=== PATIENT | male | born 1975 | race Caucasian/White ===

== ENCOUNTER 2017-03-17 16:18 | Emergency (ER) | payer BC, OTHER ==
[~2017-03-17] VITALS: Ht 182.9 cm; Wt 113.5 kg
[~2017-03-17 16:18] MED LIST: CIPR500S2 PO; LNS30CCR; MORP15TA97 PO; MORP30TA16 PO; PRD20T PO
--- NOTE | 2017-03-17 17:14 | ED Lower Extremity ---
"General Chief Complaint: Lower Extremity Stated Complaint: CATHETER CHECK Source: patient Exam Limitations: no limitations History of Present Illness Time seen by provider: 17:12 Initial Comments Patient has long-standing back pain. He's been followed by credit specialist. Pain radiates down both legs. He has problems walking due to pain. Recently the right leg has been bothering a little more than the left leg. He has pain in his right calf is well now. He was seen at urgent care prior to arrival. They referred him here because of right leg was swollen and they were concerned about a blood clot. He denies chest pain or shortness of air. Allergies and Home Medications Allergies Coded Allergies: No Known Drug Allergies (Verified , 09/22/07) Home Medications [Xanax] , (Reported) [tramadol] , (Reported) Constitutional: no symptoms reported Respiratory: no symptoms reported Cardiovascular: no symptoms reported Musculoskeletal: back pain, muscle pain, muscle stiffness All Other Systems Reviewed Negative Unless Noted: Yes Past Aposisc-Szmfox-Fqilkb Hx Patient Social History Alcohol Use: Occasionally Uses Smoking Status: Never a Smoker Recent Foreign Travel: No Contact w/Someone Who Travel: No Immunizations Up To Date Tetanus Booster (TDap): Unknown Surgeries HX Surgeries: Yes (fx ankle/femur) Respiratory Hx Respiratory Disorders: No Cardiovascular Hx Cardiac Disorders: No Neurological Hx Neurological Disorders: No Reproductive System Hx Reproductive Disorders: No Sexually Transmitted Disease: No HIV/AIDS: No Genitourinary Hx Genitourinary Disorders: Yes Genitourinary Disorders: Prostate Problems Gastrointestinal Hx Gastrointestinal Disorders: No Musculoskeletal Hx Musculoskeletal Disorders: Yes Musculoskeletal Disorders: Degenerate Disk Disease, Arthritis Endocrine Hx Endocrine Disorders: No HEENT HX ENT Disorders: No Cancer Hx Cancer: No Psychosocial Hx Psychiatric Problems: No Blood Transfusions Hx Blood Disorders: No Reviewed Nursing Assessment Reviewed/Agree w Nursing PMH: Yes Family Medical History Significant Family History: No Pertinent Family Hx Physical Exam Vital Signs Vital Sign - Last 12Hours 03/17/17 16:59 Temp 99.7 Pulse 83 Resp 18 B/P (MAP) 146/106 Capillary Refill : General Appearance: WD/WN, no apparent distress Neck: supple Cardiovascular: regular rate, rhythm Respiratory: lungs clear Gastrointestinal: soft Legs: right leg soft tissue tenderness (right calf is tender|, no cord) Neurologic/Psychiatric: alert, normal mood/affect Skin: normal color, warm/dry Progress/Results/Core Measures Results/Orders My Orders Orders - JUSTIN PADILLA MD Us Venous Lower Ext Rt (03/17/17 17:11) Vital Signs/I&O Vital Sign - Last 12Hours 03/17/17 16:59 Temp 99.7 Pulse 83 Resp 18 B/P (MAP) 146/106 Diagnostic Imaging Comments Ultrasound shows no evidence of clot Departure Impression Impression: Primary Impression: Right leg pain Additional Impressions: Chronic back pain muscle cramping right leg Disposition: HOME, SELF-CARE Condition: Stable Departure-Patient Inst. Decision time for Depature: 17:42 Referrals: KAYLI MOORE MD (PCP) Primary Care Physician Patient Instructions: Sciatica (DC) JUSTIN PADILLA MD Mar 17, 2017 17:14"
[2017-03-17] MEDS ORDERED: Xanax (17:15)
[2017-03-17] MEDS ORDERED: tramadol (17:16)
[2017-03-17 17:51] VITALS: BP 146/106
--- NOTE | 2017-03-17 17:59 | Diagnostic Imaging Report ---
PROCEDURE: US right lower extremity venous. TECHNIQUE: Multiple real-time grayscale images were obtained over the right lower extremity in various projections. Additional duplex Doppler and color Doppler images were also obtained. INDICATION: Right calf swelling and pain. FINDINGS: There is normal color flow enhancement with Doppler imaging from the external iliac vein to the ankle on the right. Calf compression shows normal augmentation of flow at the popliteal level. No evidence of popliteal cyst. IMPRESSION: Normal right lower extremity color duplex venous ultrasound. Dictated by: Dictated on workstation # [id number]
== END 2017-03-17 17:51 | disposition home or self-care (01) ==
LOC: EDUNIT# 16:18 → ER 16:20
DX: G89.29 Other chronic pain (principal); M54.9 Dorsalgia, unspecified; R25.2 Cramp and spasm; Z87.39 Personal history of other diseases of the musculoskeletal system and connective tissue
CPT/HCPCS: 99283

== ENCOUNTER → 2018-01-13 | Outpatient (CLI) | payer BC ==
[~2018-01-13] MED LIST changes: +Xanax; +tramadol
--- NOTE | 2018-01-13 17:18 | Diagnostic Imaging Report ---
INDICATION: Left lower quadrant pain x2 days. Decreased bowel sounds. COMPARISON: 09/18/2007. FINDINGS: The lungs are clear. There is no free air under the diaphragm. There are no air-fluid levels demonstrated. There is moderate amount of stool in the ascending and transverse colon. Very little stool is present in the distal colon. The stomach and small bowel are not distended. There is no organomegaly. No pathologic calcification. No bony abnormalities. IMPRESSION: 1. No acute abnormalities demonstrated. 2. There is a moderate amount of stool in the ascending and transverse colon with little stool in the distal colon. Report given to Nayana Silveira APRN, at 5:18 p.m. 01/13/2018/cristóbal Dictated by: Dictated on workstation # [id number]
== END ==
LOC: RAD 16:35
PROVIDERS: ATTEND Nurse Practitioner Family
DX: R10.32 Left lower quadrant pain (principal); R19.15 Other abnormal bowel sounds
CPT/HCPCS: 74022

== ENCOUNTER 2018-02-06 14:00 | Outpatient (CLI) | payer BC ==
[~2018-02-06] VITALS: Ht 182.9 cm; Wt 131.6 kg
[2018-02-06] MEDS ORDERED: MELO15TA39 PO (14:05)
[2018-02-06] MEDS ORDERED: ALPR1TAB2 PO (14:05)
[2018-02-06] MEDS ORDERED: TRAM50TA2 PO (14:05)
[2018-02-12] MEDS ORDERED: PANT40TA2 PO (14:42)
== END 2018-02-06 14:11 ==
LOC: PREOP 14:00
PROVIDERS: ATTEND Surgery
DX: Z01.818 Encounter for other preprocedural examination (principal); R19.4 Change in bowel habit

== ENCOUNTER 2018-02-12 11:20 | Day surgery (SDC) | payer BC ==
[~2018-02-12] VITALS: Ht 182.9 cm; Wt 131.6 kg
[~2018-02-12 11:20] MED LIST changes: +ALPR1TAB2 PO; +MELO15TA39 PO; +TRAM50TA2 PO
[2018-02-12] MEDS ORDERED: LACTATED RINGERS 1,000 ML IV STA (11:39)
[2018-02-12] MEDS ORDERED: HURRICAINE EXT TUBE (BENZOCAINE) XX PRN (11:45)
[2018-02-12] MEDS ORDERED: LACTATED RINGERS 1,000 ML IV ONE (11:50)
[2018-02-12 12:11] VITALS: BP 133/83
[2018-02-12] MEDS ORDERED: MIDAZOLAM 2 MG/2 ML (VERSED) VIAL ONE (13:56)
[2018-02-12] MEDS ORDERED: PROPOFOL INJECTION 50 ML IV ONE (13:56)
--- NOTE | 2018-02-12 13:58 | Progress Note-Pre Operative ---
Pre-Operative Progress Note H&P Reviewed The H&P was reviewed, patient examined and no changes noted. Time Seen by Provider: 13:46 Date H&P Reviewed: February 12, 2018 Time H&P Reviewed: 13:49 Pre-Operative Diagnosis: Gastritis, Change in bowel habits, LLQ pain NOBLE GARCIA DO February 12, 2018 13:58
[2018-02-12] MEDS ORDERED: proPOfol 200 MG/20 ML (DIPRIVAN) VIAL IV ONE (14:14)
[2018-02-12] MEDS ORDERED: HURRICAINE EXT TUBE (BENZOCAINE) ONE (14:39)
--- NOTE | 2018-02-12 14:41 | Progress Note-Post Operative ---
Post-Operative Progess Note Surgeon (s)/Incident Response Specialist (s) Surgeon NOBLE GARCIA DO Incident Response Specialist: none Pre-Operative Diagnosis Gastritis, Change in bowel habits, LLQ pain Post-Operative Diagnosis Gastritis ? Flores's esophagus Colon Polyps Diverticula Int Hemorrhoids Procedure & Operative Findings Date of Procedure 02/12/18 Procedure Performed/Findings EGD with bx Colon with snare Anesthesia Type IV sedation by FAST FOOD MANAGER Estimated Blood Loss Estimated blood loss (mL): scant Specimens/Packing Specimens Removed Antral bx GE jxn bx Ascending colon polyp Descending colon polyp NOBLE GARCIA DO February 12, 2018 14:41
[2018-02-12] MEDS ORDERED: PANT40TA2 PO (14:42)
--- NOTE | 2018-02-12 14:44 | Endoscopy Discharge Instruct ---
Endo Procedure/Findings Findings 1.: Gastritis, Flores's Esophagus (questionable) 2.: Polyp (ascending and descending colon) 3.: Diverticulosis 4.: Internal Hemorrhoids Discharge Instructions - Activity: You might feel a little sleepy until tomorrow. This is due to the medicine you received to relax you. Until tomorrow, you should: NOT drive a car, operate machinery or power tools. NOT drink any alcoholic beverages. NOT make any important decisions or sign importortant papers. Do not return to work until tomorrow, unless otherwise instructed. Resume previous activities tomorrow. Diet: Start by taking liquids. If you tolerate liquids, advance to solid food. Notify Physician - If you experience excessive bleeding, unusual abdominal pain, fever, or chest pain, contact your doctor immediately. Follow-Up: - I have received and understand the above instructions and will call my doctor if I have any further questions. Patient Signature Date Nurse Signature Other (Relationship) NOBLE GARCIA DO February 12, 2018 14:44
--- NOTE | 2018-02-12 14:55 | Anesthesia-General Post-Op ---
MAC Patient Condition Mental Status/LOC: Same as Preop Cardiovascular: Satisfactory Nausea/Vomiting: Absent Respiratory: Satisfactory Pain: Controlled Complications: Absent Post Op Complications Complications None Follow Up Care/Instructions Patient Instructions None needed. Anesthesiology Discharge Order Discharge Order Patient is doing well, no complaints, stable vital signs, no apparent adverse anesthesia problems. No complications reported per nursing. SEAMUS MALIK CRNA February 12, 2018 14:55
[2018-02-12 15:15] VITALS: BP 132/67
[2018-02-12 15:45] VITALS: BP 131/84
--- OUTSIDE RECORDS SUMMARY | 2018-02-12 18:41 | XMS REPORT ---
Author Author ELPIDIO BANSAL Organization [facility] Address [address] [place] [address] Care Team Providers Care Trimming Operator Name Role Phone NIMISHA ELPIDIO Unavailable PROBLEMS Type Condition ICD9-CM Code USB57-MT Code Onset Dates Condition Status SNOMED Code Problem Abdominal pain, right upper quadrant 789.01 Active 200614581 Problem Neuropathy G62.9 Active 180648197 Problem Degenerative disc disease, lumbar M51.36 Active 91089939 Problem Unspecified gastritis and gastroduodenitis without mention of hemorrhage 535.50 Active 970549039 Problem Pain in joint, site unspecified 719.40 Active 90825573 Problem Degenerative disc disease, cervical M50.30 Active 83538139 Problem Degenerative disc disease, thoracic M51.34 Active 23066640 ALLERGIES No Known Allergies ENCOUNTERS Encounter Location Date Diagnosis [facility] [address] [id number] Mar, Cramps of right lower extremity R25.2 and Neuropathy G62.9 [place] [address] [address] Apr, Degenerative disc disease, cervical M50.30 ; Degenerative disc disease, lumbar M51.36 ; Degenerative disc disease, thoracic M51.34 ; Radiculopathy of lumbar region M54.16 ; Spinal stenosis, lumbar region M48.06 and Spinal stenosis of thoracolumbar region M48.05 [place] [address] [address] Mar, Degenerative disc disease, cervical M50.30 ; Degenerative disc disease, lumbar M51.36 and Degenerative disc disease, thoracic M51.34 [place] [address] [address] Mar, Numbness and tingling of both legs R20.2 ; Dizziness R42 ; Primary insomnia F51.01 ; Lumbago with sciatica, left side M54.42 ; Lumbago with sciatica, right side M54.41 and Other chronic pain G89.29 [facility] [address] [place] [id number] [place] [phone] 14 Jan, 2015 [facility] [address] [address] Jan, [facility] [address] [place] [id number] [place] [phone] 30 Jan, 2012 [facility] [address] [address] Jan, [facility] [address] [place] [id number] [place] [phone] Jan, [facility] [address] [place] [id number] [place] [phone] 16 Jan, 2012 [facility] [address] [place] [id number] [place] [address] Jan, [facility] [address] [place] [id number] [place] [phone] Jan, [facility] [address] [place] [id number] [place] [address] Jan, [facility] [address] [place] [id number] [place] [address] Jan, [facility] [address] [place] [id number] [place] [phone] Jan, IMMUNIZATIONS No Known Immunizations SOCIAL HISTORY Never Assessed REASON FOR VISIT leg cramps x4 days STeposte [facility] PLAN OF CARE Activity Details Follow Up prn Reason: VITAL SIGNS Height 72 in 2017-03-18 Weight 300 lbs 2017-03-18 Temperature 97.4 degrees Fahrenheit 2017-03-18 Heart Rate 96 bpm 2017-03-18 Respiratory Rate 20 2017-03-18 BMI 40.68 kg/m2 2017-03-18 Blood pressure systolic 142 mmHg 2017-03-18 Blood pressure diastolic 96 mmHg 2017-03-18 MEDICATIONS Medication Instructions Dosage Frequency Start Date End Date Duration Status Gabapentin 300 MG Orally Take one capsule today, followed by BID tomorrow, followed by TID there after as directed Mar, 30 day(s) Active Tramadol HCl 50 MG Orally every 6 hrs 1 tablet as needed 6h Active Xanax XR 1 MG Orally Once a day 1 tablet in the morning 24h Active RESULTS Name Result Date Reference Range CBC 2017-03-18 WBC 7.8 3.4-10.8 RBC 5.32 4.14-5.80 Hemoglobin 15.8 12.6-17.7 Hematocrit 45.9 37.5-51.0 MCV 86 79-97 MCH 29.7 26.6-33.0 MCHC 34.4 31.5-35.7 RDW 13.4 12.3-15.4 Platelets 211 150-379 Neutrophils 72 Lymphs 21 Monocytes 6 Eos 1 Basos 0 Neutrophils (Absolute) 5.6 1.4-7.0 Lymphs (Absolute) 1.6 0.7-3.1 Monocytes(Absolute) 0.5 0.1-0.9 Eos (Absolute) 0.1 0.0-0.4 Baso (Absolute) 0.0 0.0-0.2 Immature Granulocytes 0 Immature Grans (Abs) 0.0 0.0-0.1 CMP 2017-03-18 Glucose, Serum 117 65-99 BUN 14 6-24 Creatinine, Serum 0.89 0.76-1.27 eGFR If NonAfricn Am 104 >59 eGFR If Africn Am 120 >59 BUN/Creatinine Ratio 16 9-20 Sodium, Serum 143 134-144 Potassium, Serum 4.3 3.5-5.2 Chloride, Serum 102 96-106 Carbon Dioxide, Total 24 18-29 Calcium, Serum 9.7 8.7-10.2 Protein, Total, Serum 7.0 6.0-8.5 Albumin, Serum 4.4 3.5-5.5 Globulin, Total 2.6 1.5-4.5 A/G Ratio 1.7 1.2-2.2 Bilirubin, Total 1.2 0.0-1.2 Alkaline Phosphatase, S 85 39-117 AST (SGOT) 66 0-40 ALT (SGPT) 54 0-44 UA LONG DIP (IN HOUSE) 2017-03-18 Lot # [id number] Exp date Clarity jeremy Color clear Odor GLU Negative XAVI Negative KET Negative SG 1.025 BLO Negative pH 5.5 Protein Negative URO 0.2 E.U./dL NIT Negative ALEJANDRO Negative Lot # Exp date PROCEDURES Procedure Date Ordered Result Body Site URINALYSIS, AUTO, W/O SCOPE March 18, 2017 COMPLETE CBC W/AUTO DIFF WBC March 18, 2017 VENIPUNCT, ROUTINE* March 18, 2017 COMPREHEN METABOLIC PANEL March 18, 2017 INSTRUCTIONS MEDICATIONS ADMINISTERED No Known Medications MEDICAL (GENERAL) HISTORY Type Description Date Surgical History ankle surgery--Left Surgical History left knee arthroscopy Surgical History Bj placed in femur for Traction at age 8
--- OUTSIDE RECORDS SUMMARY | 2018-02-12 18:41 | XMS REPORT | Continuity of Care Document ---
Author Author [facility] Organization [facility] Address Unknown Phone Unavailable Allergies Active Description Code Type Severity Reaction Onset Reported/Identified Relationship to Patient Clinical Status Yes No Known Drug Allergies [id number] Drug Allergy Unknown N/A 02/06/2018 Medications There is no data. Problems Date Dx Coded Attending Type Code Diagnosis Diagnosed By 06/08/2013 SHAINA ISLAS MD Ot 276.50 VOLUME DEPLETION, UNSPECIFIED 06/08/2013 SHAINA ISLAS MD Ot 788.20 RETENTION OF URINE NOS 08/03/2013 KAYLI MOORE MD Ot 562.11 DIVERTICULITIS COLON (W/O MENT OF HEMORR 08/03/2013 KAYLI MOORE MD Ot 789.09 ABDOMINAL PAIN, OTHER SPECIFIED SITE 03/21/2016 Ot 571.8 CHRONIC LIVER DIS NEC 03/21/2016 Ot 789.01 ABDOMINAL PAIN, RIGHT UPPER QUADRANT 03/17/2017 Ot 571.8 CHRONIC LIVER DIS NEC 03/17/2017 Ot 789.01 ABDOMINAL PAIN, RIGHT UPPER QUADRANT 03/17/2017 JUSTIN PADILLA MD Ot G89.29 OTHER CHRONIC PAIN 03/17/2017 JUSTIN PADILLA MD Ot M54.9 DORSALGIA, UNSPECIFIED 03/17/2017 JUSTIN PADILLA MD Ot R25.2 CRAMP AND SPASM 03/17/2017 JUSTIN PADILLA MD Ot Z87.39 PERSONAL HISTORY OF DISEASES OF THE MS S 03/17/2017 Ot 571.8 CHRONIC LIVER DIS NEC 03/17/2017 Ot 789.01 ABDOMINAL PAIN, RIGHT UPPER QUADRANT 03/20/2017 JUSTIN PADILLA MD Ot G89.29 OTHER CHRONIC PAIN 03/20/2017 JUSTIN PADILLA MD Ot M54.9 DORSALGIA, UNSPECIFIED 03/20/2017 JUSTIN PADILLA MD Ot R25.2 CRAMP AND SPASM 03/20/2017 JUSTIN PADILLA MD Ot Z87.39 PERSONAL HISTORY OF DISEASES OF THE MS S 01/14/2018 RYAN, NANCY L RESEARCH SPECIALIST Ot R10.32 LEFT LOWER QUADRANT PAIN 01/14/2018 RYAN, NANCY L RESEARCH SPECIALIST Ot R19.15 OTHER ABNORMAL BOWEL SOUNDS 01/30/2018 RYAN, NANCY L RESEARCH SPECIALIST Ot R10.32 LEFT LOWER QUADRANT PAIN 01/30/2018 RYAN, NANCY L RESEARCH SPECIALIST Ot R19.15 OTHER ABNORMAL BOWEL SOUNDS 02/06/2018 RADHA DUQUE NOBLE B Ot Z01.818 ENCOUNTER FOR OTHER PREPROCEDURAL EXAMIN 02/06/2018 MICHELLEMAN DO NOBLE B Ot Z01.818 ENCOUNTER FOR OTHER PREPROCEDURAL EXAMIN 02/06/2018 DELMAN DO, NOBLE B Ot Z01.818 ENCOUNTER FOR OTHER PREPROCEDURAL EXAMIN 02/07/2018 RADHA DO NOBLE B Ot R19.4 CHANGE IN BOWEL HABIT 02/07/2018 RADHA DO NOBLE B Ot Z01.818 ENCOUNTER FOR OTHER PREPROCEDURAL EXAMIN Procedures There is no data. Results There is no data. Encounters ACCT No. Visit Date/Time Discharge Status Pt. Type Provider Facility Loc./Unit Complaint [id number] 02/06/2018 14:00:00 02/06/2018 14:11:00 DIS Outpatient NOBLE GARCIA DO [facility] PREOP COLONOSCOPY/EGD [id number] 01/13/2018 16:35:00 01/13/2018 23:59:59 CLS Outpatient NANCY DAVIS RESEARCH SPECIALIST [facility] RAD LLQ ABDOMINAL PAIN [id number] 03/17/2017 16:20:00 03/17/2017 17:51:00 DIS Emergency JUSTIN PADILLA MD [facility] ER CALF CHECK [id number] 08/03/2013 07:45:00 08/03/2013 11:00:00 DIS Emergency KAYLI MOORE MD [facility] ER LOWER ABD PAIN [id number] 06/08/2013 14:48:00 06/08/2013 17:52:00 DIS Emergency SHAINA ISLAS MD [facility] ER UNABLE TO URINATE [id number] 02/12/2018 11:20:00 ACT Outpatient NOBLE GARCIA DO [facility] ENDO BLOATING/CHANGE IN STOOLS [id number] 02/01/2012 09:23:00 Document Registration
--- OUTSIDE RECORDS SUMMARY | 2018-02-12 18:41 | XMS REPORT | Clinical Summary ---
Author Author [facility] Organization [facility] Address Unknown Phone Unavailable Care Team Providers Care Counterintelligence Agent Name Role Phone Jose Jordan MD Unavailable Flako Gross APRN PCP Source Comments Some departments are not documenting in the electronic medical record. If you do not see the information that you expected, contact Release of Information in the Health Information Management department at [phone] for further assistance in locating additional records.[facility] Allergies Not on File Current Medications Prescription Sig. Disp. Refills Start End Date Status Date traMADol (ULTRAM) 50 mg Take 50 mg by mouth every Active tablet 6 hours as needed for Pain. Active Problems Not on file Family History Relation Name Status Comments Father Alive Mother Alive Social History Tobacco Use Types Packs/Day Years Used Date Never Smoker Alcohol Use Drinks/Week oz/Week Comments No 0 Standard 0.0 drinks or equivalent Sex Assigned at Date Recorded Not on file Last Filed Vital Signs Vital Sign Reading Time Taken Blood Pressure 126/78 06/12/2016 10:41 AM CDT Pulse 92 06/12/2016 10:41 AM CDT Temperature 36.9 C (98.4 F) 06/12/2016 10:41 AM CDT Respiratory Rate 18 06/12/2016 10:41 AM CDT Oxygen Saturation 97% 06/12/2016 10:41 AM CDT Inhaled Oxygen - - Concentration Weight 131.1 kg (289 lb 1.9 oz) 06/12/2016 10:41 AM CDT Height 177.8 cm (5' 10") 06/12/2016 10:41 AM CDT Body Mass Index 41.48 06/12/2016 10:41 AM CDT Plan of Treatment Health Maintenance Due Date Last Done Comments PHYSICAL (COMPREHENSIVE) 02/24/1980 EXAM PERTUSSIS VACCINE 02/24/1984 HIV SCREENING 02/24/1988 TETANUS VACCINE 1990 INFLUENZA VACCINE 07/14/2018 Results Not on filefrom Last 3 Months
--- NOTE | 2018-02-14 02:56 | OPERATIVE REPORT ---
DATE OF SERVICE: 02/12/2018 PREOPERATIVE DIAGNOSES: 1. Gastritis. 2. Change in bowel habits, some left lower quadrant pain, history of diverticula. POSTOPERATIVE DIAGNOSES: 1. Gastritis. 2. Colon polyps. 3. Diverticula. 4. Internal hemorrhoids. PROCEDURE: 1. EGD with biopsy. 2. Colonoscopy with snare polypectomy. SURGEON: Dr. Bhandari. REMEDIATION TECHNICIAN: None. ANESTHESIA: IV sedation by RESILIENT TILE INSTALLER. SPECIMEN: One biopsy from the antrum and one from the GE junction as well as two colon polyps from the descending colon. BLOOD LOSS: Scant. FLUIDS: Per anesthesia. POSTOPERATIVE CONDITION: Stable. INDICATION FOR PROCEDURE: The patient is a 42-year-old male who has been having some heartburn and gastritis symptoms and needed a workup. He also noted some change in bowel habits, left lower quadrant pain, history of diverticulitis and some change in bowel habits, wanting to get a colonoscopy. FINDINGS: The patient had some gastritis. Duodenum looked okay. He also had what looked like some changes at the GE junction, possibly Flores's esophagus. Biopsies were performed in the colon. The patient had lot of diverticula throughout the colon. He also had 2 polyps in the descending colon and some grade I internal hemorrhoids. PROCEDURE NOTE: After informed consent was obtained, the patient was brought to the endoscopy suite, placed in bed in the left lateral decubitus position. He was administered IV sedation by the RESILIENT TILE INSTALLER who then monitored his vitals the entire time, heart rate, blood pressure and pulse ox. A scope was inserted down the mouth, down the esophagus and into the stomach, looked into the antrum. There was some erythema and some gastritis and then down into the duodenum. Duodenum looked normal. Backed up and did a biopsy in the antrum. Retroflexed the scope. Did not really see any hiatal hernia, although it looked like there was some redness around the GE junction, pulled back up the stomach into the esophagus and right at the GE junction, there did look like there was some creeping up of the Z line. A biopsy was performed here. Then pulled up, the rest of the esophagus looked good. Switched scopes, switched gloves and then went down below to perform the second procedure, performing the colonoscopy. Pushing the scope in from the rectum all the way to 150 cm, able to get to the cecum. On the way, I noted some diverticula and took a picture of this. Most of the diverticula were in the descending colon and sigmoid. However, there were some in the transverse and ascending colon. Once in the cecum, took a picture of the appendiceal orifice, noted the ileocecal valve, then slowly withdrew the scope, insufflating to look circumferentially at the martinez looking at the cecum up the ascending colon to the hepatic flexure, then down the transverse colon to splenic flexure, into the descending colon. In descending colon, two polyps were seen. These were removed with snare polypectomy and then sent to pathology, continued down in the sigmoid and finally into the rectum, retroflexed in the rectal vault, saw some minimal internal hemorrhoids, look like probably just grade I. Took a picture of these and then removed the scope. The patient tolerated the procedure and then recovered in the endoscopy suite. Job ID: [id number] DocumentID: [id number] Dictated Date: 02/13/2018 16:34:37 Milk Receiver Date: 02/14/2018 02:56:16 Dictated By: DO KELLY PATTEN
== END 2018-02-12 16:05 | disposition home or self-care (01) ==
LOC: ENDO 11:20
PROVIDERS: ATTEND Surgery
DX: K29.70 Gastritis, unspecified, without bleeding (principal); D12.2 Benign neoplasm of ascending colon; K57.30 Diverticulosis of large intestine without perforation or abscess without bleeding; E66.01 Morbid (severe) obesity due to excess calories; Z68.39 Body mass index [BMI] 39.0-39.9, adult
CPT/HCPCS: 88305

== ENCOUNTER 2018-05-25 15:31 | Emergency (ER) | payer BC ==
[~2018-05-25] VITALS: Ht 182.9 cm; Wt 86.2 kg
[~2018-05-25 15:31] MED LIST changes: +PANT40TA2 PO
[2018-05-25] MEDS ORDERED: ASPIRIN 81 MG CHEW (CHILDREN'S ASA) PO ONE (15:45)
[2018-05-25] MEDS ORDERED: NS IV 1000 ML 1,000 ML IV SCH (16:00)
[2018-05-25 16:05] LABS: BASOPHILS % (AUTO) 0 % (0-10); EOSINOPHILS # (AUTO) 0.1 10^3/uL (0.0-0.3); EOSINOPHILS % (AUTO) 1 % (0-10); HEMATOCRIT 45 % (40-54); HEMOGLOBIN 15.5 G/DL (13.3-17.7); LYMPHOCYTES # (AUTO) 1.9 X 10^3 (1.0-4.0); LYMPHOCYTES % (AUTO) 22 % (12-44); MEAN CORPUSCULAR HEMOGLOBIN 29 PG (25-34); MEAN CORPUSCULAR HGB CONC 34 G/DL (32-36); MEAN CORPUSCULAR VOLUME 85 FL (80-99); MEAN PLATELET VOLUME 10.2 FL (7.4-10.4); MONOCYTES # (AUTO) 0.8 X 10^3 (0.0-1.0); MONOCYTES % (AUTO) 9 % (0-12); NEUTROPHILS % (AUTO) 69 % (42-75); PLATELET COUNT 207 10^3/uL (130-400); RED BLOOD COUNT 5.33 10^6/uL (4.35-5.85); RED CELL DISTRIBUTION WIDTH 13.1 % (10.0-14.5); WHITE BLOOD COUNT 8.7 10^3/uL (4.3-11.0)
[2018-05-25] MEDS ORDERED: METO-351 PO (16:07)
--- NOTE | 2018-05-25 16:07 | ED Cardiac General ---
History of Present Illness General Chief Complaint: Cardiac/General Problems Stated Complaint: IRREGULAR HEART BEAT Source: patient Exam Limitations: no limitations History of Present Illness Date Seen by Provider: May 25, 2018 Time Seen by Provider: 16:02 Initial Comments To ER with reports of palpitations intermittently for the past 2 years, worse for the past week. Since she's been under a lot of stress lately, he reported that to the nurse but to me he denies any anxiety or stress. States that he drinks occasionally and had a few beers yesterday but nothing today and does not drink on a regular basis. No fevers or chills. No dyspnea. No chest pain. No unilateral leg swelling. States that he drinks one cup of coffee every morning. Otherwise he has no caffeine intake. He denies any workout supplements. Denies any drug use. He did have a steroid injection within the past week for hip pain. Timing/Duration: 3-4 days Severity: moderate Activities at Onset: none NTG SL BOOK PACKER: No Allergies and Home Medications Allergies Coded Allergies: No Known Drug Allergies (Unverified , 02/06/18) Home Medications Alprazolam 1 Mg Tablet, 1 MG PO HS PRN for SLEEP, (Reported) Meloxicam 15 Mg Tablet, 15 MG PO DAILY, (Reported) Pantoprazole Sodium 40 Mg Tablet.dr, 40 MG PO DAILY Prescribed by: NOBLE GARCIA on 02/12/18 1442 Tramadol HCl 50 Mg Tablet, 50 MG PO PRN, (Reported) Patient Home Medication List Home Medication List Reviewed: Yes Review of Systems Constitutional: see HPI EENTM: No Symptoms Reported Respiratory: No Symptoms Reported Cardiovascular: See HPI, Chest Pain, Palpitations Gastrointestinal: No Symptoms Reported Genitourinary: No Symptoms Reported Musculoskeletal: no symptoms reported Skin: no symptoms reported Psychiatric/Neurological: No Symptoms Reported Endocrine: No Symptoms Reported Hematologic/Lymphatic: No Symptoms Reported Past Ctsnjai-Ctxhfw-Habkla Hx Patient Social History Alcohol Beverage of Choice: Beer Recent Foreign Travel: No Contact w/Someone Who Travel: No Recent Hopitalizations: No Immunizations Up To Date Tetanus Booster (TDap): Unknown Seasonal Allergies Seasonal Allergies: Yes Past Medical History Surgeries: Yes (fx ankle/femur) Respiratory: No Sleep Apnea Currently Using CPAP: No Currently Using BIPAP: No Cardiac: No Neurological: No Reproductive Disorders: No Sexually Transmitted Disease: No HIV/AIDS: No Prostate Problems, Kidney Stones Gastrointestinal: No Chronic Constipation Musculoskeletal: Yes Degenerate Disk Disease, Arthritis, Chronic Back Pain Endocrine: No HEENT: No Loss of Vision: Denies Hearing Impairment: Denies Cancer: No Psychosocial: No Blood Disorders: No Adverse Reaction/Blood Tranf: No (N/A) Family Medical History No Pertinent Family Hx Physical Exam Vital Signs Capillary Refill : Height, Weight, BMI Height: 6'0.00" Weight: 290lbs. 2.0oz. 131.458498fx; 39.4 BMI Method:Stated General Appearance: No Apparent Distress, WD/WN HEENT: PERRL/EOMI, TMs Normal Neck: Full Range of Motion, Normal Inspection Respiratory: No Accessory Muscle Use, No Respiratory Distress Cardiovascular: Regular Rate, Rhythm, Normal Peripheral Pulses Gastrointestinal: Non Tender, Soft Neurologic/Psychiatric: Alert, Oriented x3 Skin: Normal Color, Warm/Dry Other comments EKG shows sinus rhythm rate in the 80s to 90s, occasional PVC. Progress/Results/Core Measures Results/Orders Lab Results Laboratory Tests Test 05/25/18 15:57 Range/Units My Orders Orders - SHWETA WHITE APRN Cbc With Automated Diff (05/25/18 15:36) Magnesium (05/25/18 15:36) Chest 1 View, Ap/Pa Only (05/25/18 15:36) Ekg Tracing (05/25/18 15:36) Cardiac Profile 1 (05/25/18 15:36) Comprehensive Metabolic Panel (05/25/18 15:36) Myoglobin Serum (05/25/18 15:36) Protime With Inr (05/25/18 15:36) Partial Thromboplastin Time (05/25/18 15:36) O2 (05/25/18 15:36) Monitor-Rhythm Ecg Trace Only (05/25/18 15:36) Lipid Panel (05/26/18 06:00) Aspirin Chewable Tablet (Baby Aspirin Ch (05/25/18 15:45) Saline Lock/Iv-Start (05/25/18 15:36) BNP (05/25/18 15:36) Fibrin Degradation Products (05/25/18 15:36) Thyroid Stimulating Hormone (05/25/18 16:00) Ns Iv 1000 Ml (Sodium Chloride 0.9%) (05/25/18 16:00) Departure Impression Primary Impression: Palpitations Disposition: 01 HOME, SELF-CARE Condition: Stable Departure-Patient Inst. Decision time for Depature: 16:06 Referrals: PIPE VALENZUELA [facility] Benjamin WASHINGTON MD, BASHAR J MD SEGLIE, FLOYD R MD (PCP/Family) Primary Care Physician Patient Instructions: Palpitations (DC) Add. Discharge Instructions: 1. Return to ER for any concerns 2. Follow-up with your doctor next week 3. All discharge instructions reviewed with patient and/or family. Voiced understanding. Scripts Metoprolol Succinate (Toprol Xl) 25 Mg Tab.er.24h 25 MG PO DAILY, #14 TAB Prov: SHWETA WHITE APRN 05/25/18 SHWETA WHITE APRN May 25, 2018 16:07
[2018-05-25 16:18] LABS: FIBRIN DEGRADATION PRODUCTS 0.49 UG/ML (0.00-0.49); PROTHROMBIN TIME PATIENT 13.3 SEC (12.2-14.7)
[2018-05-25 16:25] LABS: ALANINE AMINOTRANSFERASE 45 U/L (0-55); ALBUMIN 4.5 GM/DL (3.2-4.5); ALKALINE PHOSPHATASE 84 U/L (40-136); BILIRUBIN,TOTAL 1.4 MG/DL (0.1-1.0); BUN/CREATININE RATIO 17; CALCIUM 10.2 MG/DL (8.5-10.1); CARBON DIOXIDE 26 MMOL/L (21-32); CHLORIDE 105 MMOL/L (98-107); CREATININE SERUM 0.98 MG/DL (0.60-1.30); GFR ESTIMATED > 60; GLUCOSE 94 MG/DL (70-105); MAGNESIUM 2.1 MG/DL (1.8-2.4); SODIUM 140 MMOL/L (135-145); TOTAL PROTEIN 7.7 GM/DL (6.4-8.2)
[2018-05-25 16:32] LABS: MYOGLOBIN SERUM 64.3 NG/ML (10.0-92.0)
--- NOTE | 2018-05-25 16:42 | Diagnostic Imaging Report ---
INDICATION: Irregular heart rate. COMPARISON: 01/13/2018. FINDINGS: Single view of the chest demonstrates cardiac enlargement with slight central vascular congestion. There is no pneumothorax. No focal infiltrate is seen. There is no pleural effusion. Osseous structures are age appropriate. IMPRESSION: Cardiac enlargement with slight central vascular congestion. Dictated by: Dictated on workstation # [id number]
[2018-05-25 16:55] VITALS: BP 122/90
== END 2018-05-25 17:05 | disposition home or self-care (01) ==
LOC: EDUNIT# 15:31 → ER 15:33
DX: R00.2 Palpitations (principal); Z87.442 Personal history of urinary calculi; Z87.19 Personal history of other diseases of the digestive system
CPT/HCPCS: 36415; 71045; 80053; 83735; 83874; 83880; 84443; 84484; 85025; 85379; 85610; 85730; 93005; 93041

== ENCOUNTER 2018-06-19 21:00 | Outpatient (CLI) | payer BC ==
[~2018-06-19 21:00] MED LIST changes: +METO-351 PO
== END 2018-06-20 05:50 | disposition home or self-care (01) ==
LOC: SLEEP 21:00
PROVIDERS: ATTEND Internal Medicine Cardiovascular Disease
DX: G47.33 Obstructive sleep apnea (adult) (pediatric) (principal); R06.83 Snoring; G47.10 Hypersomnia, unspecified; G47.00 Insomnia, unspecified
CPT/HCPCS: 95810

== ENCOUNTER → 2018-06-20 | Outpatient (CLI) | payer BC | LOC: CARD 07:52 | PROVIDERS: ATTEND Internal Medicine Cardiovascular Disease | DX: R07.89 Other chest pain (principal); R06.09 Other forms of dyspnea; I34.0 Nonrheumatic mitral (valve) insufficiency; R00.2 Palpitations; I07.1 Rheumatic tricuspid insufficiency | CPT/HCPCS: 93225; 93226 ==

== ENCOUNTER → 2018-07-08 | Outpatient (CLI) | payer BC | LOC: CARD 10:45 | PROVIDERS: ATTEND Internal Medicine Cardiovascular Disease | DX: R07.89 Other chest pain (principal); R06.09 Other forms of dyspnea; I34.0 Nonrheumatic mitral (valve) insufficiency; I07.1 Rheumatic tricuspid insufficiency; R00.2 Palpitations | CPT/HCPCS: 93306 ==

== ENCOUNTER → 2021-02-02 | Outpatient (CLI) | payer BC ==
[~2021-02-02] MED LIST changes: -TRAM50TA2 PO; +TRM50T PO
--- NOTE | 2021-02-02 10:08 | Diagnostic Imaging Report ---
PROCEDURE: US Gallbladder. TECHNIQUE: Multiple real-time grayscale images were obtained over the right upper quadrant in various projections. INDICATION: Diarrhea. FINDINGS: Liver is mildly enlarged at 18.8 cm. There appears to be some increased echogenicity to the liver, suggestive of hepatic steatosis. The portal vein is patent and shows normal direction of flow. Gallbladder is without stones or sludge. There is no wall thickening or biliary ductal dilatation. The pancreas was obscured by bowel gas. Visualized aorta is nonaneurysmal. IVC is limited in evaluation. The right kidney is without calculi or hydronephrosis. There is no ascites. IMPRESSION: 1. Mild hepatomegaly and hepatic steatosis. 2. No evidence of cholelithiasis or acute cholecystitis. Dictated by: Dictated on workstation # [id number]
== END ==
LOC: RAD 08:19
PROVIDERS: ATTEND Surgery
DX: K76.0 Fatty (change of) liver, not elsewhere classified (principal); R19.7 Diarrhea, unspecified
CPT/HCPCS: 76705

== ENCOUNTER 2021-02-03 05:35 | Outpatient (RCR) | payer BC ==
[~2021-02-03] VITALS: Ht 182.9 cm; Wt 149.7 kg
[2021-02-06] MEDS ORDERED: PANT40TA2 PO (10:59)
== END 2021-02-03 10:00 | disposition home or self-care (01) ==
LOC: PREOP 05:35
PROVIDERS: ATTEND Surgery
DX: Z01.812 Encounter for preprocedural laboratory examination (principal); R10.10 Upper abdominal pain, unspecified; Z20.822 Contact with and (suspected) exposure to COVID-19
CPT/HCPCS: 87635

== ENCOUNTER 2021-02-06 08:45 | Day surgery (SDC) | payer BC ==
[~2021-02-06] VITALS: Ht 183 cm; Wt 150.0 kg
[2021-02-06] MEDS ORDERED: LACTATED RINGERS 1,000 ML IV ONE ×2 (08:55→10:35)
[2021-02-06] MEDS ORDERED: LACTATED RINGERS 1,000 ML IV STA (08:59)
[2021-02-06] MEDS ORDERED: HURRICAINE EXT TUBE (BENZOCAINE) XX PRN (09:00)
[2021-02-06 09:08] VITALS: BP 126/84
--- NOTE | 2021-02-06 09:43 | Progress Note-Pre Operative ---
Pre-Operative Progress Note H&P Reviewed The H&P was reviewed, patient examined and no changes noted. Time Seen by Provider: 09:40 Date H&P Reviewed: Feb 06, 2021 Time H&P Reviewed: 09:40 Pre-Operative Diagnosis: RUQ pain, upper abd pain NOBLE GARCIA DO Feb 06, 2021 09:43
[2021-02-06] MEDS ORDERED: PROPOFOL INJECTION 50 ML IV ONE (10:17)
[2021-02-06] MEDS ORDERED: MIDAZOLAM 2 MG/2 ML (VERSED) VIAL ONE (10:17)
[2021-02-06] MEDS ORDERED: HURRICAINE EXT TUBE (BENZOCAINE) ONE (10:18)
--- NOTE | 2021-02-06 10:58 | Progress Note-Post Operative ---
Post-Operative Progess Note Surgeon (s)/Gas Meter Mechanic (s) Surgeon NOBLE GARCIA DO Gas Meter Mechanic: none Pre-Operative Diagnosis RUQ pain, upper abd pain Post-Operative Diagnosis Gastritis Hiatal Hernia Esophagitis prob Barretts Procedure & Operative Findings Date of Procedure 02/06/21 Procedure Performed/Findings EGD with bx Anesthesia Type IV sedation by BELT BUILDER HELPER Estimated Blood Loss Estimated blood loss (mL): scant Specimens/Packing Specimens Removed antral bx body bx GE jxn bx NOBLE GARCIA DO Feb 06, 2021 10:58
[2021-02-06] MEDS ORDERED: PANT40TA2 PO (10:59)
--- NOTE | 2021-02-06 10:59 | Endoscopy Discharge Instruct ---
Endo Procedure/Findings Findings 1.: Gastritis 2.: Hiatal Hernia 3.: Other Findings (Esophagitis probable Flores's) Discharge Instructions - Activity: You might feel a little sleepy until tomorrow. This is due to the medicine you received to relax you. Until tomorrow, you should: NOT drive a car, operate machinery or power tools. NOT drink any alcoholic beverages. NOT make any important decisions or sign importortant papers. Do not return to work until tomorrow, unless otherwise instructed. Resume previous activities tomorrow. Diet: Start by taking liquids. If you tolerate liquids, advance to solid food. 1.: EGD in 1 year Notify Physician - If you experience excessive bleeding, unusual abdominal pain, fever, or chest pain, contact your doctor immediately. NOBLE GARCIA DO Feb 06, 2021 10:59
[2021-02-06 11:00] VITALS: BP 139/69
[2021-02-06 11:05] VITALS: BP_SYST 134; BP_SYST 137; BP_DIAS 65; BP_DIAS 83
[2021-02-06 11:35] VITALS: BP 131/99
--- NOTE | 2021-02-06 12:37 | Anesthesia-General Post-Op ---
MAC Patient Condition Mental Status/LOC: Same as Preop Cardiovascular: Satisfactory Nausea/Vomiting: Absent Respiratory: Satisfactory Pain: Controlled Complications: Absent Post Op Complications Complications None Follow Up Care/Instructions Patient Instructions None needed. Anesthesiology Discharge Order Discharge Order Patient is doing well, no complaints, stable vital signs, no apparent adverse anesthesia problems. No complications reported per nursing. MARIA EUGENIA FRANCO CRNA Feb 06, 2021 12:37
--- NOTE | 2021-02-07 13:42 | OPERATIVE REPORT ---
DATE OF SERVICE: 02/06/2021 PREOPERATIVE DIAGNOSES: Upper abdominal pain and right upper quadrant pain. POSTOPERATIVE DIAGNOSES: Gastritis, hiatal hernia, and esophagitis, possible Flores's. PROCEDURE: EGD with biopsy. SURGEON: Milton Bhandari DO MEAT COUNTER WORKER: None. ANESTHESIA: IV sedation by the FAMILY SERVICES WORKER. SPECIMEN: Antral biopsy, body of stomach biopsy, GE junction biopsy x2. BLOOD LOSS: Scant. FLUIDS: Per anesthesia. POSTOPERATIVE CONDITION: Stable. INDICATION FOR PROCEDURE: The patient is a 45-year-old male who has been having some upper abdominal pain and right upper quadrant pain, needed an EGD for workup. FINDINGS: The patient had some gastritis. He had a hiatal hernia and what looked like esophagitis, possible Flores's in the distal esophagus. PROCEDURE NOTE: After informed consent was obtained, the patient was brought to the endoscopy suite, placed in bed in left lateral decubitus position. He was administered IV sedation by the FAMILY SERVICES WORKER who then monitored his vitals the entire time, heart rate, blood pressure and pulse ox and the scope was inserted down the mouth through the esophagus. At the base of the esophagus, it looked like inflammation, took a picture. Pushed pass this to the antrum, took a picture of the antrum, which also had some inflammation, pushed into the duodenum. Duodenum looked fine. Pulled back and did a biopsy of the antrum. Retroflexed the scope and saw a small hiatal hernia and then did a biopsy of body of stomach, pulled the scope into the GE junction and did two biopsies here, pushed the scope back into the stomach, suctioned all the air out and then pulled the scope up back into the esophagus, took a picture. He had some changes and increase of the gastric lining in the lower portion of the esophagus. It looked like a Flores's esophagus. The upper portion of the esophagus looked normal. Pulled the scope up the esophagus and out the mouth. The patient tolerated the procedure. He was recovered in endoscopy suite. Job ID: [id number] DocumentID: [id number] Dictated Date: 02/07/2021 10:12:44 Blindstitch Hemmer Date: 02/07/2021 13:41:30 Dictated By: MILTON BHANDARI DO
== END 2021-02-06 11:35 | disposition home or self-care (01) ==
LOC: ENDO 08:45
PROVIDERS: ATTEND Surgery
DX: K29.50 Unspecified chronic gastritis without bleeding (principal); K20.90 Esophagitis, unspecified without bleeding; K44.9 Diaphragmatic hernia without obstruction or gangrene; G47.33 Obstructive sleep apnea (adult) (pediatric); M19.90 Unspecified osteoarthritis, unspecified site; E66.01 Morbid (severe) obesity due to excess calories; Z68.41 Body mass index [BMI] 40.0-44.9, adult; Z79.899 Other long term (current) drug therapy
CPT/HCPCS: 88305

== ENCOUNTER → 2021-02-20 | Outpatient (CLI) | payer BC ==
[~2021-02-20] MED LIST changes: +CATHETER FLUSH 10 ML SYR IV PRN
--- NOTE | 2021-02-20 13:05 | Diagnostic Imaging Report ---
RADIOPHARMACEUTICAL: 5.21mCi Tc-99m Choletec IV INDICATION: Diarrhea COMPARISON: Ultrasound dated 02/02/2021 TECHNIQUE: Anterior dynamic imaging for 1 hour. Additional 60 minutes imaging was performed after the patient ingested an 8 ounce can of Ensure. FINDINGS: There is homogenous uptake throughout the liver. The gallbladder is visualized at 10minutes and small bowel at 45minutes. After ingestion of an 8 ounce can of Ensure, there is normal contraction of the gallbladder with lower limits of normal calculated GBEF at 39%. IMPRESSION: 1. Normal HIDA Scan without evidence of cystic or common duct obstruction. 2. Lower limits of normal gallbladder ejection fraction of 39%. Dictated by: Dictated on workstation # [id number]
== END ==
LOC: CARD 10:00
PROVIDERS: ATTEND Surgery
DX: R19.7 Diarrhea, unspecified (principal)
CPT/HCPCS: 78227; A9537

== ENCOUNTER 2021-10-01 07:15 | Emergency (ER) | payer BC ==
[~2021-10-01] VITALS: Ht 182 cm; Wt 150.0 kg
[~2021-10-01 07:15] MED LIST changes: -CATHETER FLUSH 10 ML SYR IV PRN
--- NOTE | 2021-10-01 07:43 | ED Back Pain ---
General Chief Complaint: Back Problems Stated Complaint: MID BACK PAIN/LIGHTHEADED Source of Information: Patient Exam Limitations: No Limitations History of Present Illness Date Seen by Provider: Oct 01, 2021 Time Seen by Provider: 07:30 Initial Comments Patient is a 46-year-old male who presents to the emergency department today wit h a chief complaint of midthoracic back pain. Patient states that he has had this pain for at least the last year. He occasionally takes ibuprofen 3 tablets once a day. States that he woke up this morning and felt like he was having a "panic attack." He was short of breath and lightheaded and felt like he might pass out due to the pain. He denies any radiation of the pain but occasionally has low back pain/left hip pain with numbness that radiates down his left leg. He has had previous left hip replacement. He denies any incontinence, loss of bowel or bladder function. No urinary retention. No recent illnesses or trauma. He states that he has been seen at [facility] and had multiple opinions on his back issues. He states his original injury was when he was 8 years old he was "stepped on by a horse". He has not taken any ibuprofen in the last 24 hours. He states any movement causes extreme pain to radiate around into his ribs of his chest. He is not nauseous or short of breath. No recent cough or congestion. No abdominal pain. He is not Covid vaccinated. All other review of systems reviewed and negative except as stated. Location: T-Spine Timing/Duration: 1-3 Hours Severity: Severe Pain/Injury Location: Back Radiation: Other (chest) Method of Injury: Unknown Modifying Factors: Worse With Movement; Improves With Rest Associated Symptoms: numbness in legs/feet (left leg intermittent chronic) Allergies and Home Medications Allergies Coded Allergies: No Known Drug Allergies (Unverified , 02/06/18) Patient Home Medication List Home Medication List Reviewed: Yes Cyclobenzaprine HCl (Cyclobenzaprine HCl) 10 Mg Tablet, 10 MG PO Q8H PRN for muscle spasm Prescribed by: TYLER BEE on 10/01/21 0841 Hydrocodone/Acetaminophen (Hydrocodone-Acetamin 5-325 mg) 1 Each Tablet, 1 TAB PO Q6H PRN for PAIN-MODERATE (5-7) Prescribed by: TYLER BEE on 10/01/21 0841 Pantoprazole Sodium (Protonix) 40 Mg Tablet.dr, 40 MG PO DAILY Prescribed by: NOBLE GARCIA on 02/06/21 1059 Review of Systems Constitutional: see HPI EENTM: no symptoms reported Respiratory: short of breath Cardiovascular: chest pain ("rib pain") Gastrointestinal: no symptoms reported Genitourinary: no symptoms reported Musculoskeletal: back pain (thoracic) Skin: no symptoms reported All Other Systems Reviewed Negative Unless Noted: Yes Past Tzrpkzp-Ilnyej-Pdxihv Hx Patient Social History Tobacco Use?: No Substance use?: No Alcohol Use?: Yes Alcohol Frequency: Once in a while Pt feels they are or have been: No Immunizations Up To Date Tetanus Booster (TDap): Unknown Seasonal Allergies Seasonal Allergies: Yes Past Medical History Surgery/Hospitalization HX: pmh: back, joint pain, gallbladder issues Surgeries: Yes (fx ankle/femur) Respiratory: Yes Sleep Apnea Currently Using CPAP: No Currently Using BIPAP: No Cardiac: No Neurological: No Reproductive Disorders: No Sexually Transmitted Disease: No HIV/AIDS: No Prostate Problems, Kidney Stones Gastrointestinal: Yes Chronic Constipation Musculoskeletal: Yes Degenerate Disk Disease, Arthritis, Chronic Back Pain Endocrine: No HEENT: No Loss of Vision: Denies Hearing Impairment: Denies Cancer: No Psychosocial: No Integumentary: No Blood Disorders: No Adverse Reaction/Blood Tranf: No (N/A) Family Medical History No Pertinent Family Hx Physical Exam Vital Signs Vital Signs - First Documented 10/01/21 07:36 Temp 36.3 Pulse 104 Resp 20 B/P (MAP) 134/99 (111) Pulse Ox 100 Capillary Refill : Height, Weight, BMI Height: 6'0.00" Weight: 190lbs. 2.0oz. 86.808705sr; 44.79 BMI Method:Stated General Appearance: No Apparent Distress, WD/WN HEENT: PERRL/EOMI Neck: Normal Inspection Cardiovascular: Regular Rate, Rhythm, Normal Peripheral Pulses Respiratory: Chest Non Tender, Lungs Clear, Normal Breath Sounds, No Accessory Muscle Use, No Respiratory Distress Gastrointestinal: Normal Bowel Sounds, Soft Back: Normal Inspection, No CVA Tenderness, No Vertebral Tenderness, Other (negative straight leg raise. no saddle anethesia) Extremity: Normal Inspection, Normal Range of Motion, Non Tender, No Calf Tenderness Neurologic/Psychiatric: Alert, Oriented x3, No Motor/Sensory Deficits, Normal Mood/Affect, Motor Weakness, Sensory Deficit Skin: Normal Color, Warm/Dry Progress/Results/Core Measures Results/Orders Lab Results Laboratory Tests Test 10/01/21 07:32 Range/Units White Blood Count 7.0 4.3-11.0 10^3/uL Red Blood Count 5.25 4.30-5.52 10^6/uL Hemoglobin 15.4 13.3-17.7 g/dL Hematocrit 47 40-54 % Mean Corpuscular Volume 89 80-99 fL Mean Corpuscular Hemoglobin 29 25-34 pg Mean Corpuscular Hemoglobin Concent 33 32-36 g/dL Red Cell Distribution Width 12.9 10.0-14.5 % Platelet Count 177 130-400 10^3/uL Mean Platelet Volume 10.6 9.0-12.2 fL Immature Granulocyte % (Auto) 1 % Neutrophils (%) (Auto) 68 42-75 % Lymphocytes (%) (Auto) 22 12-44 % Monocytes (%) (Auto) 7 0-12 % Eosinophils (%) (Auto) 2 0-10 % Basophils (%) (Auto) 0 0-10 % Neutrophils # (Auto) 4.8 1.8-7.8 10^3/uL Lymphocytes # (Auto) 1.6 1.0-4.0 10^3/uL Monocytes # (Auto) 0.5 0.0-1.0 10^3/uL Eosinophils # (Auto) 0.1 0.0-0.3 10^3/uL Basophils # (Auto) 0.0 0.0-0.1 10^3/uL Immature Granulocyte # (Auto) 0.1 0.0-0.1 10^3/uL Sodium Level 140 135-145 MMOL/L Potassium Level 4.2 3.6-5.0 MMOL/L Chloride Level 104 98-107 MMOL/L Carbon Dioxide Level 24 21-32 MMOL/L Anion Gap 12 5-14 MMOL/L Blood Urea Nitrogen 15 7-18 MG/DL Creatinine 0.98 0.60-1.30 MG/DL Estimat Glomerular Filtration Rate 82 BUN/Creatinine Ratio 15 Glucose Level 117 H 70-105 MG/DL Calcium Level 9.4 8.5-10.1 MG/DL Corrected Calcium 9.3 8.5-10.1 MG/DL Total Bilirubin 1.2 H 0.1-1.0 MG/DL Aspartate Amino Transf (AST/SGOT) 46 H 5-34 U/L Alanine Aminotransferase (ALT/SGPT) 69 H 0-55 U/L Alkaline Phosphatase 78 40-136 U/L Total Creatine Kinase 166 30-200 U/L Troponin I < 0.028 <0.028 NG/ML Total Protein 7.2 6.4-8.2 GM/DL Albumin 4.1 3.2-4.5 GM/DL Lipase 28 8-78 U/L My Orders Orders - TYLER BEE MD Ed Iv/Invasive Line Start (10/01/21 07:44) Cbc With Automated Diff (10/01/21 07:44) Comprehensive Metabolic Panel (10/01/21 07:44) Lipase (10/01/21 07:44) Creatine Kinase (10/01/21 07:44) Troponin I [place] (10/01/21 07:44) Chest 1 View, Ap/Pa Only (10/01/21 07:44) Ketorolac Injection (Toradol Injection) (10/01/21 07:45) Orphenadrine Inj (Ed Only) (Norflex Inje (10/01/21 07:45) Ekg Tracing (10/01/21 07:56) Hydrocodone/Apap 7.5/325 Tab (Lortab 7. (10/01/21 08:45) Medications Given in ED Current Medications Medications Dose Ordered Sig/Samira Route Start Time Stop Time Status Last Admin Dose Admin Ketorolac Tromethamine 15 mg ONCE ONCE IVP 10/01/21 07:45 10/01/21 07:46 DC 10/01/21 07:51 15 MG Orphenadrine Citrate 60 mg ONCE ONCE IV 10/01/21 07:45 10/01/21 07:46 DC 10/01/21 07:51 60 MG Vital Signs/I&O 10/01/21 07:36 Temp 36.3 Pulse 104 Resp 20 B/P (MAP) 134/99 (111) Pulse Ox 100 Progress Progress Note : Time: 08:30 Progress Note Patient states he is feeling much better after IV Toradol and Norflex. Discussed findings of lab, EKG and chest x-ray with him. He states that he has follow-up scheduled with a primary care physician on November 27. Patient is given some recommendations for further pain management to include [id number] pain patches, heating pads. We will give him a few days of pain medication and some muscle relaxer for home. Recommended routine dosing of naproxen or ibuprofen to take with food. He is comfortable with this plan of care. All questions are sought and answered. Initial ECG Impression Date: Oct 01, 2021 Initial ECG Impression Time: 07:30 Initial ECG Rate: 92 Initial ECG Rhythm: Normal Sinus Initial ECG Intervals: Normal Initial ECG Impression: Normal, Nonspecific Changes Diagnostic Imaging Diagonstic Imaging: Xray Plain Films/CT/US/NM/MRI: chest Comments [facility]. [place], [place] NAME: OWEN PANTOJA [facility] REC#: [id number] PT STATUS: REG ER : 1975 PHYSICIAN: TYLER BEE MD ADMIT DATE: 10/01/21/ER Draft Date of Exam:10/01/21 CHEST 1 VIEW, AP/PA ONLY Indication: Chest and back pain. TIME OF EXAM: 8:06 AM Correlation is made with prior chest 05/25/2018. FINDINGS: The heart size is normal. The pulmonary vascularity is unremarkable. The lungs are clear. No infiltrate, effusion or pneumothorax is detected. IMPRESSION: No acute cardiopulmonary process is detected. Dictated on workstation # [id number] Dict: 10/01/21 0812 Trans: 10/01/21 0813 [facility] [id number] Interpreted by: DINA JOHNSON MD Electronically signed by: Departure Impression Primary Impression: Thoracic back pain Qualified Codes: M54.6 - Pain in thoracic spine Disposition: HOME, SELF-CARE Condition: Stable Departure-Patient Inst. Decision time for Depature: 08:32 Referrals: NO,LOCAL PHYSICIAN (PCP/Family) Primary Care Physician Patient Instructions: Upper Back Pain ED Add. Discharge Instructions: Scheduled [id number] Ibuprofen 3 piss (600mg) every 6-8 hours with food as needed for pain. Use the hydrocodone if worsening pain, every 6 hours. Muscle relaxers at night to help with pain on awakening. Keep your follow up appointment with your primary care provider in November. Return to the ER for any new, concerning or emergent concerns. Scripts Cyclobenzaprine HCl (Cyclobenzaprine HCl) 10 Mg Tablet 10 MG PO Q8H PRN for muscle spasm, #15 TAB Prov: TYLER BEE MD 10/01/21 Hydrocodone/Acetaminophen (Hydrocodone-Acetamin 5-325 mg) 1 Each Tablet 1 TAB PO Q6H PRN for PAIN-MODERATE (5-7), #15 TAB Prov: TYLER BEE MD 10/01/21 TYLER BEE MD Oct 01, 2021 07:43
[2021-10-01] MEDS ORDERED: KETOROLAC 30 MG/ML VIAL IVP ONE (07:45)
[2021-10-01] MEDS ORDERED: ORPHENADRINE 60 MG/2 ML (NORFLEX) AMP (ED ONLY) IV ONE (07:45)
[2021-10-01 07:53] LABS: ALBUMIN 4.1 GM/DL (3.2-4.5); BASOPHILS % (AUTO) 0 % (0-10); CHLORIDE 104 MMOL/L (98-107); EOSINOPHILS # (AUTO) 0.1 10^3/uL (0.0-0.3); EOSINOPHILS % (AUTO) 2 % (0-10); HEMATOCRIT 47 % (40-54); HEMOGLOBIN 15.4 g/dL (13.3-17.7); LYMPHOCYTES # (AUTO) 1.6 10^3/uL (1.0-4.0); LYMPHOCYTES % (AUTO) 22 % (12-44); MEAN CORPUSCULAR HEMOGLOBIN 29 pg (25-34); MEAN CORPUSCULAR HGB CONC 33 g/dL (32-36); MEAN CORPUSCULAR VOLUME 89 fL (80-99); MEAN PLATELET VOLUME 10.6 fL (9.0-12.2); MONOCYTES # (AUTO) 0.5 10^3/uL (0.0-1.0); MONOCYTES % (AUTO) 7 % (0-12); NEUTROPHILS # (AUTO) 4.8 10^3/uL (1.8-7.8); NEUTROPHILS % (AUTO) 68 % (42-75); PLATELET COUNT 177 10^3/uL (130-400); POTASSIUM 4.2 MMOL/L (3.6-5.0); SODIUM 140 MMOL/L (135-145)
[2021-10-01 07:54] LABS: CALCIUM 9.4 MG/DL (8.5-10.1)
[2021-10-01 07:56] LABS: GLUCOSE 117 MG/DL (70-105); TOTAL PROTEIN 7.2 GM/DL (6.4-8.2)
[2021-10-01 07:57] LABS: CARBON DIOXIDE 24 MMOL/L (21-32)
[2021-10-01 07:58] LABS: BILIRUBIN,TOTAL 1.2 MG/DL (0.1-1.0)
[2021-10-01 07:59] LABS: ALKALINE PHOSPHATASE 78 U/L (40-136); CREATININE SERUM 0.98 MG/DL (0.60-1.30); GFR ESTIMATED 82
[2021-10-01 08:01] LABS: BUN/CREATININE RATIO 15
[2021-10-01 08:02] LABS: ALANINE AMINOTRANSFERASE 69 U/L (0-55)
[2021-10-01 08:03] LABS: CREATINE KINASE 166 U/L (30-200); LIPASE 28 U/L (8-78)
--- NOTE | 2021-10-01 08:13 | Diagnostic Imaging Report ---
Indication: Chest and back pain. TIME OF EXAM: 8:06 AM Correlation is made with prior chest 05/25/2018. FINDINGS: The heart size is normal. The pulmonary vascularity is unremarkable. The lungs are clear. No infiltrate, effusion or pneumothorax is detected. IMPRESSION: No acute cardiopulmonary process is detected. Dictated by: Dictated on workstation # [id number]
[2021-10-01] MEDS ORDERED: CYCL10TA25 PO (08:41)
[2021-10-01] MEDS ORDERED: ACHD5005 PO (08:41)
[2021-10-01] MEDS ORDERED: HYDROcodone/APAP 7.5 MG/325 MG (LORTAB, LORCET PLUS) TABLET PO ONE (08:45)
[2021-10-01 10:12] VITALS: BP 126/89
== END 2021-10-01 10:11 | disposition home or self-care (01) ==
LOC: EDUNIT# 07:15 → ER 07:18
DX: M54.6 Pain in thoracic spine (principal); G47.30 Sleep apnea, unspecified; G89.29 Other chronic pain
CPT/HCPCS: 36415; 71045; 80053; 82550; 83690; 84484; 85025; 93005